=== PATIENT | female | born 1950 | race African-American/Black ===

== ENCOUNTER 2020-08-23 16:14 | Emergency (ER) | payer MEDICARE ==
[~2020-08-23] VITALS: Ht 162.6 cm; Wt 81.0 kg
[~2020-08-23 16:14] MED LIST: ASPI-1497 PO; ATEN50TA PO; HYDR25TA PO; OXYB5TAB16 PO; PRAV40TA58 PO
[2020-08-23 16:20] VITALS: BP 135/76
== END 2020-08-23 21:20 | disposition left against medical advice (07) ==
LOC: ER 16:14
DX: Z53.21 Procedure and treatment not carried out due to patient leaving prior to being seen by health care provider (principal)